=== PATIENT | male | born 1980 | race Caucasian/White ===

== ENCOUNTER 2021-07-19 13:10 | Emergency (ER) | payer SELFPAY ==
[2021-07-19 15:21] LABS: Bilirubin Neg (Negative); Blood, Urine Negative (Negative); Glucose, Urine (Dipstick) Normal (Negative); Ketone, Urine Negative (Negative); Leukocyte Negative (Negative); Nitrite Negative (Negative); Protein, Urine (Dipstick) Negative (Neg-Trace); Urobilinogen Normal mg/dL (Less than 2)
[2021-07-19 15:22] LABS: Clarity Clear (Clear)
[2021-07-21 20:55] LABS: Chlam.trachomatis by PCR,Urine Not Detected (NotDetected)
== END 2021-07-19 16:09 | disposition home or self-care (01) ==
LOC: CSHERS 13:10
DX: N50.3 Cyst of epididymis (principal)
CPT/HCPCS: 76870; 81003; 87491; 87591; 93976